=== PATIENT | male | born 1995 | race Caucasian/White ===

== ENCOUNTER 2019-03-15 14:26 | Outpatient (CLI) | payer BC ==
--- NOTE | 2019-03-15 14:44 | RAD ---
2 view chest: [03/15/2019] Comparison:None available HISTORY: Intermittent left-sided chest pain FINDINGS: Heart and mediastinal contours are grossly unremarkable. No pneumothorax or pleural fluid. No focal consolidation or alveolar edema. IMPRESSION: No acute findings.
== END 2019-03-15 14:27 | disposition home or self-care (01) ==
LOC: BICRAD 14:26
PROVIDERS: ATTEND Internal Medicine
DX: R07.9 Chest pain, unspecified (principal)
CPT/HCPCS: 71046